=== PATIENT | male | born 1965 | race Caucasian/White ===

== ENCOUNTER 2020-01-07 15:50 | Outpatient (CLI) | payer BC, SELFPAY ==
--- NOTE | ~2020-01-07 | XR_ITS ---
XR chest 2V DATE: 01/07/2020 16:47 INDICATION: Ex-smoker TECHNIQUE: PA and lateral views views COMPARISON: 04/22/2010 PA chest FINDINGS: Normal heart size. No hilar or mediastinal enlargement. No pulmonary infiltrate or consolid ation, pleural effusion or pulmonary vascular congestion or pneumothorax. Lumbar spine hardware is noted. Mild scoliosis and degenerative change of the thoracic spine. IMPRESSION: No active cardiopulmonary disease Reviewed, dictated and finalized at location [facility].
--- NOTE | ~2020-01-07 | XR_ITS ---
EXAMINATION: XR knee LT 3V DATE: 01/07/2020 16:46 INDICATION: Left knee pain TECHNIQUE: Three views of the left knee were obtained. COMPARISON: 04/09/2010 FINDINGS: Alignment is normal. No fracture or osteochondral lesion. There is mild tricompartmental os teoarthritis characterized by tiny marginal osteophytes. No joint effusion/synovitis. Soft tissues a re unremarkable. IMPRESSION: 1. Mild osteoarthritis without acute osseous abnormality. Reviewed, dictated and finalized at location [facility].
== END 2020-01-07 15:51 | disposition home or self-care (01) ==
LOC: ANHIMG 15:58
PROVIDERS: PCP Family Medicine; Visit Provider Family Medicine
DX: M25.562 Pain in left knee (principal); Z87.891 Personal history of nicotine dependence; M17.12 Unilateral primary osteoarthritis, left knee
CPT/HCPCS: 71046; 73562

== ENCOUNTER → 2022-10-11 16:33 | Outpatient (CLI) | payer BC, SELFPAY ==
--- NOTE | ~2022-10-11 | MR_ITS ---
MRI of the lumbar spine Clinical History: Radiculopathy Technique: Axial T2-weighted images, and sagittal T1-weighted, T2-weighted, and T2 fat-sat images wer e acquired. Findings: There is no acute fracture in the lumbar spine. Minimal grade 1 retrolisthesis of L4 over L 5 noted. There is fusion of the L1, L2, and L3 vertebral bodies, with associated hardware and suscept ibility artifact. No suspicious bone marrow signal abnormality evident. At L1-L2, there is no disc bulge or herniation. There is facet arthropathy. No spinal canal stenosis or definite neural foraminal narrowing. At L2-L3, there is no disc bulge or herniation. There is facet arthropathy. No spinal canal stenosis or definite neural foraminal narrowing. At L3-L4, there is disc bulge and facet arthropathy. No spinal canal stenosis. Neural foramina are pr eserved. At L4-L5, there is disc bulge and facet arthropathy. No spinal canal stenosis. There is severe right neural foraminal narrowing and mild left neural foraminal narrowing. At L5-S1, there is no disc bulge or herniation. There is facet arthropathy. No spinal canal stenosis or neural foraminal narrowing. Paravertebral soft tissues are unremarkable. Impression: Orthopedic fusion from L1 to L3. Minimal grade 1 retrolisthesis of L4 over L5. Bilateral neural foraminal narrowing, right worse than left, at L4-L5. Diffuse facet joint arthropathy throughout the lumbar spine. Reviewed, dictated and finalized at [facility]. Impression: Orthopedic fusion from L1 to L3. Minimal grade 1 retrolisthesis of L4 over L5. Bilateral neural foraminal narrowing, right worse than left, at L4-L5. Diffuse facet joint arthropathy throughout the lumbar spine.
== END ==
PROVIDERS: Visit Provider Nurse Practitioner Family
DX: M54.16 Radiculopathy, lumbar region (principal); Z98.1 Arthrodesis status
CPT/HCPCS: 72148

== ENCOUNTER → 2023-05-16 08:12 | Outpatient (CLI) | payer BC, SELFPAY ==
--- NOTE | ~2023-05-16 | CT_ITS ---
EXAMINATION: CT sinus wo con DATE: 05/16/2023 08:33 INDICATION: Chronic sinusitis. Right ear infections. Congestion. Headaches. TECHNIQUE: Computed tomography (CT) of the paranasal sinuses was performed without contrast. Iterativ e reconstruction technique was employed. Exam dose: 294.16 mGy-cm total exam DLP. COMPARISON: None FINDINGS: Rightward bowing of the nasal septum. Marina bullosa and intralamellar cell of left middle nasal turbinate. This moderate soft tissue swell ing of the nasal turbinates. Bilateral Irvin cells. There is minimal mucoperiosteal thickening along the lateral aspect of the each maxillary ostium. The ostiomeatal units are otherwise patent. The mastoid air cells are normally developed and aerated without any significant mucoperiosteal thick ening or any soft tissue opacity or fluid level. There is opacification of a small minority of right mastoid air cells. Otherwise the mastoid air cell s are normally developed and aerated bilaterally. Middle and inner ear apparatus appear normal bilaterally. IMPRESSION: Rightward bowing of nasal septum Marina bullosa and intralamellar cell of left middle nasal turbinate Minimal mucoperiosteal thickening at the lateral aspect of each maxillary ostium Patent ostiomeatal units and paranasal sinuses Minimal right mastoid effusions Reviewed, dictated and finalized at [facility]. Reviewed, dictated and finalized at location [facility]. IMPRESSION: Rightward bowing of nasal septum Marina bullosa and intralamellar cell of left middle nasal turbinate Minimal mucoperiosteal thickening at the lateral aspect of each maxillary ostiu m Patent ostiomeatal units and paranasal sinuses Minimal right mastoid effusions
== END ==
PROVIDERS: PCP Otolaryngology; Visit Provider Otolaryngology
DX: J32.9 Chronic sinusitis, unspecified (principal); J34.2 Deviated nasal septum; J34.89 Other specified disorders of nose and nasal sinuses; H74.8X1 Other specified disorders of right middle ear and mastoid
CPT/HCPCS: 70486

== ENCOUNTER 2024-06-17 00:05 | Day surgery (SDC) | payer BC, SELFPAY ==
[2024-05-27 15:04] VITALS: BMI 30.9
[2024-06-17 13:23] VITALS: BP 124/77; PULSE 93; RESP 18; TEMP 36.1; O2SAT 100
[2024-06-17] MEDS: LACTATED RINGERS 1,000 ML 150 ML IV CONT (13:37)
--- NOTE | 2024-06-17 13:42 | WPDANESEPPF ---
Anes - Initial Pre Proc Eval Procedure: Operation Date: 06/17/24 14:30 Proposed Procedures p Screening Colonoscopy - Mg Mar MD Date/Time: 06/17/24 13:42 Surgeon: Mg Mar MD Pre Op Diagnosis: screening neoplasm colon Patient Data Age: 59 Gender: M Height: 1.78 m Weight: 98 kg Last Vital Signs Temp 36.1 C L 06/17/24 13:23 Pulse 93 06/17/24 13:23 Resp 18 06/17/24 13:23 BP 124/77 06/17/24 13:23 Pulse Ox 100 06/17/24 13:23 O2 Del Method Room Air 06/17/24 13:23 Allergies Allergy/AdvReac Type Severity Reaction Status Date / Time No Known Allergies Allergy Mild Verified 06/17/24 13:19 Home Medications Medication Instructions Recorded Confirmed Type Vitamin D (with calcium) 1 tablet PO EVERY OTHER DAY 05/27/24 06/17/24 History aspirin 81 mg tablet 81 mg PO EVERY OTHER DAY 05/27/24 06/17/24 History atorvastatin 20 mg tablet 20 mg PO HS 05/27/24 06/17/24 History cetirizine 10 mg tablet (Zyrtec) 10 mg PO DAILY 05/27/24 06/17/24 History fenofibrate micronized 200 mg 200 mg PO DAILY 05/27/24 06/17/24 History capsule multivit with minerals-iron 18 1 tablet PO DAILY 05/27/24 06/17/24 History mg-folic ac 400 mcg-vit K 25 mcg tablet (Adults Multivitamin) omega-3 fatty acids 2 cap PO DAILY 05/27/24 06/17/24 History semaglutide 7 mg tablet (Rybelsus) 7 mg PO DAILY 05/27/24 06/17/24 History Patient hx anesthesia problems: none Family hx anesthesia problems: none Results Review: All pre-operative results and documents have been reviewed as part of the pre-operative evaluation. [facility] Social History Social History Smoking status: Current every day smoker Tobacco type: cigars Additional smoking assessment comments: 1 cigar/day Alcohol intake: current Drinks per week: 14 Alcohol use details: Beer Substance use: never Substance use type: does not use Living arrangements: with family Spiritual care concerns: No Anes - Eval Final PreProcedure Day of Procedure 06/17/24 13:42 Patient weight: obese Heart: regular rate and rhythm Lungs: clear to auscultation Airway: Mallampati scale class II Neurological: alert and oriented Last oral intake: >/= 8 hours ASA classification: III Emergent: no Anesthetic plan: proceed Anesthesia type and monitoring: general GIVS and standard monitoring Results Review: All pre-operative results and documents have been reviewed as part of the pre-operative evaluation. Informed Consent: The patient's anesthetic plan and its attendant risks and benefits were discussed with the patient/family/POA. Questions were solicited and answers provided to the satisfaction of the patient/family/POA.
[2024-06-17 13:52] LABS: Glucose Point of Care 83 mg/dl (65-105)
--- NOTE | 2024-06-17 14:08 | PM.HPGS ---
History of Present Illness History of Present Illness Consent: Risks, benefits, and alternatives have been discussed and questions answered. Patient agrees to proceed with procedure. Chief complaint: screening neoplasm colon Narrative: Saturnino Cannon is a 59 year old male here for screening colonoscopy, last one 10 years ago Review of Systems Review of Systems: All systems reviewed & are unremarkable except as noted in HPI and below PMFSH Past Medical History Medical History (Updated 06/17/24 @ 14:09 by Mg Mar MD) Colon cancer screening Social History Social History Smoking status: Current every day smoker Tobacco type: cigars Additional smoking assessment comments: 1 cigar/day Alcohol intake: current Drinks per week: 14 Alcohol use details: Beer Substance use: never Substance use type: does not use Living arrangements: with family Spiritual care concerns: No Meds Home Medications and Allergies Home Medications Medication Instructions Recorded Confirmed Type Vitamin D (with calcium) 1 tablet PO EVERY OTHER DAY 05/27/24 06/17/24 History aspirin 81 mg tablet 81 mg PO EVERY OTHER DAY 05/27/24 06/17/24 History atorvastatin 20 mg tablet 20 mg PO HS 05/27/24 06/17/24 History cetirizine 10 mg tablet (Zyrtec) 10 mg PO DAILY 05/27/24 06/17/24 History fenofibrate micronized 200 mg 200 mg PO DAILY 05/27/24 06/17/24 History capsule multivit with minerals-iron 18 1 tablet PO DAILY 05/27/24 06/17/24 History mg-folic ac 400 mcg-vit K 25 mcg tablet (Adults Multivitamin) omega-3 fatty acids 2 cap PO DAILY 05/27/24 06/17/24 History semaglutide 7 mg tablet (Rybelsus) 7 mg PO DAILY 05/27/24 06/17/24 History Allergies Allergy/AdvReac Type Severity Reaction Status Date / Time No Known Allergies Allergy Mild Verified 06/17/24 13:19 Vital Signs Vital Signs - 24 hr 06/17/24 13:23 Temperature 96.9 F L Pulse Rate 93 Respiratory Rate 18 Blood Pressure 124/77 Pulse Oximetry 100 Oxygen Delivery Room Air Exam Const: General: comfortable and no acute distress HENMT: Face/Nose/Sinus: Normal nares present Eyes: General: appearance normal, both eyes and all related structures Neck: Neck: no JVD Resp: Auscultation: clear to auscultation bilaterally Cardio: Rate: regular rate Rhythm: regular rhythm GI: Inspection: non-distended GI Palp: Yes Soft to palpation Skin: General skin exam: normal color Neuro: General: gait normal Speech: normal speech Extrem: General: normal to inspection Psych: Mental Status: mental status grossly normal Assessment and Plan Assessment and plan (1) Colon cancer screening: Code(s): Z12.11 - Encounter for screening for malignant neoplasm of colon Status: Acute Assessment and Plan: colonoscopy
[2024-06-17 14:28] VITALS: BP 96/58; PULSE 82; RESP 20; O2SAT 96
[2024-06-17 14:38] VITALS: BP 95/56; PULSE 79; RESP 23; O2SAT 96
[2024-06-17 14:48] VITALS: BP 116/79; PULSE 74; RESP 21; O2SAT 97
== END 2024-06-17 14:57 | disposition home or self-care (01) ==
PROVIDERS: PCP Family Medicine; Visit Provider Internal Medicine Gastroenterology
PROC: 0DJD8ZZ Inspection of Lower Intestinal Tract, Via Natural or Artificial Opening Endoscopic (ICD-10-PCS; CPT 45378; principal; 2024-06-17 14:30)
DX: Z12.11 Encounter for screening for malignant neoplasm of colon (principal); D12.3 Benign neoplasm of transverse colon; K62.1 Rectal polyp; F17.290 Nicotine dependence, other tobacco product, uncomplicated; E66.9 Obesity, unspecified; Z68.31 Body mass index [BMI] 31.0-31.9, adult
CPT/HCPCS: 45385; 82948; 88305; J2003; J2704; J7120